=== PATIENT | male | born 1985 | race African-American/Black ===

== ENCOUNTER 2016-09-01 13:49 | Emergency (ER) | payer OTHER ==
--- NOTE | 2016-09-01 15:23 | DIAGNOSTIC IMAGING REPORT ---
PROCEDURE: XR LUMBAR SPINE 2 OR 3 VIEWS INDICATION: TRAUMA/INJURY TECHNIQUE: Three views. COMPARISON: None. FINDINGS: Osseous structures and disc spaces are normal. No evidence of an acute process or fracture. IMPRESSION: 1. Negative lumbar spine.
--- NOTE | 2016-09-01 15:26 | ED NURSING NOTES ---
Clinical Report - Nurses [address] [place] [address] 09/01/2016 13:56 Patient: ADI ALLEN JR TRIAGE Triage time 14:00 Sep 01 2016. Acuity: LEVEL 4. Chief Complaint: FALL DOWN 1 STAIR. --14:06 Vickie Hunt R.N. 14:01 09/01/16. BP: 132/87. HR: 99. RR: 18. O2 saturation: 100%. Temp: 97.9 F. Pain level now: 04/30. --14:06 Vickie Hunt R.N. Weight: 149.6 kg stated. Height/Length: 75 inches Per Patient. BMI: 41.2. --13:59 Vickie Hunt R.N. Medications Insulin. --14:02 Vickie Hunt R.N. Medication/allergy information source: the patient. --14:06 Vickie Hunt R.N. Allergies Metformin. --14:03 Vickie Hunt R.N. History Arrived by private vehicle, and accompanied by family. This occurred (10 AM today). ( slipped off a step on a truck and landed with low back on the step. complains of back pain). He has had back pain. No loss of consciousness. No dizziness, neck pain, extremity pain, trouble walking or limited ROM present. No difficulty breathing. 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 SOCIAL HX: Heavy tobacco smoker (cigarette)- 1 pack per day. History of drug use: marijuana. No alcohol use. No infectious disease exposure. ABUSE ASSESSMENT: No report of abuse. SELF HARM ASSESSMENT: A self harm assessment was performed. The patient answered "no" to the question "Have you recently felt down, depressed, or hopeless?", "Have you noticed less interest or pleasure in doing things?", "Do you have thoughts of harming or killing yourself?", "Are you here because you tried to hurt yourself?", "Have you ever tried to hurt yourself before today?", "Have you recently had thoughts about harming or killing others?" and "Do you have any dangerous items in your possession?". FALL RISK ASSESSMENT: Fall risk assessment completed. No fall risk identified. NUTRITIONAL RISK ASSESSMENT: The nutritional risk assessment revealed no deficiencies. FUNCTIONAL ASSESSMENT: Functional assessment: no impairments noted. LEARNING NEEDS ASSESSMENT: The learning needs assessment revealed no barriers. SKIN INTEGRITY ASSESSMENT: Skin integrity risk assessment completed. No skin integrity risk identified. --14:06 Vickie Hunt R.N. PROBLEMS: Hemorrhoids. Diabetes Mellitus. --14:03 Vickie Hunt R.N. ADDITIONAL SURGERIES: no known surgeries. Interventions ID band on patient. --14:06 Vickie Hunt R.N. PHYSICAL ASSESSMENT 14:12 09/01/16. GENERAL / NEURO / PSYCH: Alert. Oriented X 4. Appears in no acute distress. HEENT: Pupils equal, round and reactive to light. Head non-tender. RESPIRATORY: Chest nontender. Breath sounds within normal limits. GI / : Abdomen soft and nontender. No CVA tenderness. EXTREMITIES: Extremities exhibit normal ROM. Neuro-vascular status intact to the extremity. SKIN: Skin intact. Skin is warm and dry. No ecchymosis. No skin breakdown noted. BACK: Vertebral point tenderness over the thoracic spine. No soft tissue tenderness in the back. --14:12 Vickie Hunt R.N. NURSING PROGRESS NOTES 14:00 09/01/16. Two patient identifiers checked. Call light placed in reach. Side rails up x 1. Bed placed in lowest position. Brakes of bed on. Patient ready for evaluation. --14:12 Vickie Hunt R.N. 14:24 09/01/2016 Hydrocodone-APAP (Hydrocodone-Acetaminophen) PO 5/325 mg Tablets 1 tab given. Allergies verified, confirmed 5 rights and sedative warning given to the patient. --14:24 Vickie Hunt R.N. 14:55 09/01/16. Reassessment after medication administered. He is calm and resting quietly. Overall patient status is improved- he states feels better. Patient waiting for radiology results and disposition. --14:55 Vickie Hunt R.N. DISPOSITION / DISCHARGE 15:34 09/01/16. Condition at departure: improved and stable. The goals identified in the patient's plan of care were met. No learning barriers present. Discharge instructions provided and reviewed with the patient. Reviewed medication(s) side effects, precautions, dosing and course information. Prescription(s) given to the patient. Patient verbalized understanding. Written instructions provided in [place]. The patient was discharged home and accompanied by spouse. He left the Emergency Department ambulatory and via private vehicle. Patient driving. FALL RISK ASSESSMENT: Fall risk assessment completed. No fall risk identified. --15:34 Vickie Hunt R.N. 14:01 09/01/16. BP: 132/87. HR: 99. RR: 18. O2 saturation: 100%. Temp: 97.9 F. Pain level now: 04/30. --15:34 Vickie Hunt R.N. Departure time: 15:34 Sep 01 2016. --15:34 Vickie Hunt R.N. Locked/Released at 09/01/2016 15:39 by Vickie Hunt R.N.
--- NOTE | 2016-09-01 15:26 | ED ORDER SUMMARY ---
..... Patient: ADI ALLEN JR OrderSheet [facility] VisitID: [id number] [address] [place] [address] 31y, M Registration Date/Time: 09/01/2016 ORDER SHEET Weight: 149.6 kg (stated) Allergies: Metformin GENERAL ORDERS: Lumbar Spine 2 or 3V Urgent (14:19 09/01/2016 Fiona Cho.ADonna-C) ([facility] 14:20 [place]) MEDICATION ORDERS: Hydrocodone-APAP PO 5/325 mg (NOW, HIGH ALERT MEDICATION) (14:19 09/01/2016 Fiona SuarezADonna-C) (14:24 Sharron Jiménez) IV FLUIDS: ORDER SHEET NOTES: [Electronically signed by Vickie Hunt R.N. (15:39 09/01/2016)] [Electronically signed by Maria C Cooney P.A.-C (15:52 09/01/2016)] [Electronically locked/signed by Vickie Hunt R.N. (15:39 09/01/2016)]
--- NOTE | 2016-09-01 15:26 | ED ORDER SUMMARY ---
..... Patient: ADI ALLEN JR OrderSheet [facility] VisitID: [id number] [address] [place] [address] 31y, M Registration Date/Time: 09/01/2016 ORDER SHEET Weight: 149.6 kg (stated) Allergies: Metformin GENERAL ORDERS: Lumbar Spine 2 or 3V Urgent (14:19 09/01/2016 Fiona Cho.AoDnna-C) ([facility] 14:20 [place]) MEDICATION ORDERS: Hydrocodone-APAP PO 5/325 mg (NOW, HIGH ALERT MEDICATION) (14:19 09/01/2016 Fiona SuarezADonna-C) (14:24 Sharron Jiménez) IV FLUIDS: ORDER SHEET NOTES: [Electronically signed by Vickie Hunt R.N. (15:39 09/01/2016)] [Electronically signed by Maria C Cooney P.A.-C (15:52 09/01/2016)] [Electronically locked/signed by Vickie Hunt R.N. (15:39 09/01/2016)]
--- NOTE | 2016-09-01 15:26 | ED CLINICAL REPORT ---
Clinical Report - Physicians/Mid Levels [facility] [address] [place] [address] 09/01/2016 13:56 Patient: ADI ALLEN JR Time Seen: 14:11 Sep 01 2016. Arrived- By private vehicle. Historian- patient. HISTORY OF PRESENT ILLNESS Chief Complaint: FALL. Location of injuries- (low back). The injury occurred just prior to arrival. Fell while walking (down one step with weight in hands, onto his back, at work). Occurred at home. The patient complains of mild pain. No blow to the head or loss of consciousness. (Fell backwards. No LOC. No injury to the head or neck or arms. Patient with history of low back pain, however this is different. No radiation of pain. No medications or respiratory arrival. Occurred at work.). REVIEW OF SYSTEMS No dizziness, loss of vision, hearing loss or laceration. He has no pain on weight bearing. All systems otherwise negative, except as recorded above. SOCIAL HISTORY Smoker- current status unknown. History of drug use: marijuana. ADDITIONAL NOTES The nursing notes have been reviewed. PHYSICAL EXAM Vital Signs: 09/01/2016 14:01 BP: 132/87. HR: 99. RR: 18. O2 saturation: 100%. Temp: 97.9 F. Pain level now: 9/10. Appearance: Alert. No acute distress. No backboard or C-collar. Eyes: Pupils equal, round and reactive to light. EOM intact. ENT: No dental injury. Neck: No decreased ROM in the neck. Painless ROM. Non-tender. No vertebral tenderness. CVS: Heart sounds normal. Pulses normal. Respiratory: Breath sounds normal. Chest nontender. No chest wall injury. Abdomen: No visible injury. Soft. Back: Vertebral point tenderness. Moderate vertebral tenderness in the right lower and left lower lumbar area. No right CVA tenderness or left CVA tenderness. Skin: Skin intact. Skin warm. Extremities: Pelvis stable. Right hip. No tenderness or laceration. Left hip. No tenderness or swelling. Neuro: Geovanna Coma Scale: 15- eyes open spontaneously (4); best verbal response- oriented x 3 (5); best motor response- obeys commands (6). Oriented X 3. No motor deficit. LABS, X-RAYS, AND EKG LS-Spine X-rays: (IMPRESSION: 1. Negative lumbar spine. Electronically Final signed by:Johnnie Michael MD 09/01/2016 3:26:40 PM). The X-rays were independently viewed by me and interpreted by the radiologist. PROGRESS AND PROCEDURES Course of Care: Patient able to ambulate. In pain. No radiation of pain. No signs of routes of the thoracic or cervical or head. Patient with negative x-ray of the lumbar spine, at this time no further workup from a ground-level fall. Patient to rest at home stable. Cause of fall was mechical. 09/01/2016 14:01 BP: 132/87. HR: 99. RR: 18. O2 saturation: 100%. Temp: 97.9 F. Pain level now: 9/10. Patient/family counseled. Disposition: Discharged. CLINICAL IMPRESSION Contusion to the lower back. INSTRUCTIONS Apply ice. Do not work for two days. (take motrin 200 mg, 4 pills every 8 hours in addition to vicodin). Prescription Medications: Hydrocodone/APAP 5mg / 325mg: take 1 orally every 6 hours as needed for pain. Dispense twelve (12). No refill. Follow-up: Follow up with your doctor in three days. (Electronically signed by Maria C Cooney P.A.-C 09/01/2016 15:52)
--- NOTE | 2016-09-01 15:26 | ED NURSING NOTES ---
Clinical Report - Nurses [address] [place] [address] 09/01/2016 13:56 Patient: ADI ALLEN JR TRIAGE Triage time 14:00 Sep 01 2016. Acuity: LEVEL 4. Chief Complaint: FALL DOWN 1 STAIR. --14:06 Vickie Hunt R.N. 14:01 09/01/16. BP: 132/87. HR: 99. RR: 18. O2 saturation: 100%. Temp: 97.9 F. Pain level now: 04/30. --14:06 Vickie Hunt R.N. Weight: 149.6 kg stated. Height/Length: 75 inches Per Patient. BMI: 41.2. --13:59 Vickie Hunt R.N. Medications Insulin. --14:02 Vickie Hunt R.N. Medication/allergy information source: the patient. --14:06 Vickie Hunt R.N. Allergies Metformin. --14:03 Vickie Hunt R.N. History Arrived by private vehicle, and accompanied by family. This occurred (10 AM today). ( slipped off a step on a truck and landed with low back on the step. complains of back pain). He has had back pain. No loss of consciousness. No dizziness, neck pain, extremity pain, trouble walking or limited ROM present. No difficulty breathing. 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 SOCIAL HX: Heavy tobacco smoker (cigarette)- 1 pack per day. History of drug use: marijuana. No alcohol use. No infectious disease exposure. ABUSE ASSESSMENT: No report of abuse. SELF HARM ASSESSMENT: A self harm assessment was performed. The patient answered "no" to the question "Have you recently felt down, depressed, or hopeless?", "Have you noticed less interest or pleasure in doing things?", "Do you have thoughts of harming or killing yourself?", "Are you here because you tried to hurt yourself?", "Have you ever tried to hurt yourself before today?", "Have you recently had thoughts about harming or killing others?" and "Do you have any dangerous items in your possession?". FALL RISK ASSESSMENT: Fall risk assessment completed. No fall risk identified. NUTRITIONAL RISK ASSESSMENT: The nutritional risk assessment revealed no deficiencies. FUNCTIONAL ASSESSMENT: Functional assessment: no impairments noted. LEARNING NEEDS ASSESSMENT: The learning needs assessment revealed no barriers. SKIN INTEGRITY ASSESSMENT: Skin integrity risk assessment completed. No skin integrity risk identified. --14:06 Vickie Hunt R.N. PROBLEMS: Hemorrhoids. Diabetes Mellitus. --14:03 Vickie Hunt R.N. ADDITIONAL SURGERIES: no known surgeries. Interventions ID band on patient. --14:06 Vickie Hunt R.N. PHYSICAL ASSESSMENT 14:12 09/01/16. GENERAL / NEURO / PSYCH: Alert. Oriented X 4. Appears in no acute distress. HEENT: Pupils equal, round and reactive to light. Head non-tender. RESPIRATORY: Chest nontender. Breath sounds within normal limits. GI / : Abdomen soft and nontender. No CVA tenderness. EXTREMITIES: Extremities exhibit normal ROM. Neuro-vascular status intact to the extremity. SKIN: Skin intact. Skin is warm and dry. No ecchymosis. No skin breakdown noted. BACK: Vertebral point tenderness over the thoracic spine. No soft tissue tenderness in the back. --14:12 Vickie Hunt R.N. NURSING PROGRESS NOTES 14:00 09/01/16. Two patient identifiers checked. Call light placed in reach. Side rails up x 1. Bed placed in lowest position. Brakes of bed on. Patient ready for evaluation. --14:12 Vickie Hunt R.N. 14:24 09/01/2016 Hydrocodone-APAP (Hydrocodone-Acetaminophen) PO 5/325 mg Tablets 1 tab given. Allergies verified, confirmed 5 rights and sedative warning given to the patient. --14:24 Vickie Hunt R.N. 14:55 09/01/16. Reassessment after medication administered. He is calm and resting quietly. Overall patient status is improved- he states feels better. Patient waiting for radiology results and disposition. --14:55 Vickie Hunt R.N. DISPOSITION / DISCHARGE 15:34 09/01/16. Condition at departure: improved and stable. The goals identified in the patient's plan of care were met. No learning barriers present. Discharge instructions provided and reviewed with the patient. Reviewed medication(s) side effects, precautions, dosing and course information. Prescription(s) given to the patient. Patient verbalized understanding. Written instructions provided in [place]. The patient was discharged home and accompanied by spouse. He left the Emergency Department ambulatory and via private vehicle. Patient driving. FALL RISK ASSESSMENT: Fall risk assessment completed. No fall risk identified. --15:34 Vickie Hunt R.N. 14:01 09/01/16. BP: 132/87. HR: 99. RR: 18. O2 saturation: 100%. Temp: 97.9 F. Pain level now: 04/30. --15:34 Vickie Hunt R.N. Departure time: 15:34 Sep 01 2016. --15:34 Vickie Hunt R.N. Locked/Released at 09/01/2016 15:39 by Vickie Hunt R.N.
--- NOTE | 2016-09-01 15:26 | ED CLINICAL REPORT ---
Clinical Report - Physicians/Mid Levels [facility] [address] [place] [place] [address] 09/01/2016 13:56 Patient: ADI ALLEN JR Time Seen: 14:11 Sep 01 2016. Arrived- By private vehicle. Historian- patient. HISTORY OF PRESENT ILLNESS Chief Complaint: FALL. Location of injuries- (low back). The injury occurred just prior to arrival. Fell while walking (down one step with weight in hands, onto his back, at work). Occurred at home. The patient complains of mild pain. No blow to the head or loss of consciousness. (Fell backwards. No LOC. No injury to the head or neck or arms. Patient with history of low back pain, however this is different. No radiation of pain. No medications or respiratory arrival. Occurred at work.). REVIEW OF SYSTEMS No dizziness, loss of vision, hearing loss or laceration. He has no pain on weight bearing. All systems otherwise negative, except as recorded above. SOCIAL HISTORY Smoker- current status unknown. History of drug use: marijuana. ADDITIONAL NOTES The nursing notes have been reviewed. PHYSICAL EXAM Vital Signs: 09/01/2016 14:01 BP: 132/87. HR: 99. RR: 18. O2 saturation: 100%. Temp: 97.9 F. Pain level now: 9/10. Appearance: Alert. No acute distress. No backboard or C-collar. Eyes: Pupils equal, round and reactive to light. EOM intact. ENT: No dental injury. Neck: No decreased ROM in the neck. Painless ROM. Non-tender. No vertebral tenderness. CVS: Heart sounds normal. Pulses normal. Respiratory: Breath sounds normal. Chest nontender. No chest wall injury. Abdomen: No visible injury. Soft. Back: Vertebral point tenderness. Moderate vertebral tenderness in the right lower and left lower lumbar area. No right CVA tenderness or left CVA tenderness. Skin: Skin intact. Skin warm. Extremities: Pelvis stable. Right hip. No tenderness or laceration. Left hip. No tenderness or swelling. Neuro: Geovanna Coma Scale: 15- eyes open spontaneously (4); best verbal response- oriented x 3 (5); best motor response- obeys commands (6). Oriented X 3. No motor deficit. LABS, X-RAYS, AND EKG LS-Spine X-rays: (IMPRESSION: 1. Negative lumbar spine. Electronically Final signed by:Johnnie Michael MD 09/01/2016 3:26:40 PM). The X-rays were independently viewed by me and interpreted by the radiologist. PROGRESS AND PROCEDURES Course of Care: Patient able to ambulate. In pain. No radiation of pain. No signs of routes of the thoracic or cervical or head. Patient with negative x-ray of the lumbar spine, at this time no further workup from a ground-level fall. Patient to rest at home stable. Cause of fall was mechical. 09/01/2016 14:01 BP: 132/87. HR: 99. RR: 18. O2 saturation: 100%. Temp: 97.9 F. Pain level now: 9/10. Patient/family counseled. Disposition: Discharged. CLINICAL IMPRESSION Contusion to the lower back. INSTRUCTIONS Apply ice. Do not work for two days. (take motrin 200 mg, 4 pills every 8 hours in addition to vicodin). Prescription Medications: Hydrocodone/APAP 5mg / 325mg: take 1 orally every 6 hours as needed for pain. Dispense twelve (12). No refill. Follow-up: Follow up with your doctor in three days. (Electronically signed by Maria C Cooney P.A.-C 09/01/2016 15:52)
--- NOTE | 2016-09-01 15:53 | ED DISCHARGE INSTRUCTIONS ---
Patient: ADI ALLEN JR General Instructions [facility] VisitID: [id number] [place] [address] 31y, M Registration Date/Time: 09/01/2016 Contusion to the lower back. INSTRUCTIONS Apply ice. Do not work for two days. (take motrin 200 mg, 4 pills every 8 hours in addition to vicodin). Prescription Medications: Hydrocodone/APAP 5mg / 325mg: take 1 orally every 6 hours as needed for pain. Dispense twelve (12). No refill. Follow-up: Follow up with your doctor in three days. ADDITIONAL INFORMATION Contusion, Back You have a CONTUSION of the back. This is a bruise with swelling and some bleeding under the skin. There are no broken bones. This injury takes a few days to a few weeks to heal. It is normal to feel muscle stiffness and aching in the area of injury the next day. Home Care: 1) Rest and relax your back muscles until you are feeling better. 2) Apply an ice pack (crushed or cubed ice in a plastic bag, wrapped in a towel) for 20 minutes every 2-4 hours during the first two days after a new injury. Local heat (hot shower, hot bath or heating pad) and massage will help reduce muscle spasm . Some patients feel best alternating treatments. Use the method that feels best to you for. 3) You may use acetaminophen (Tylenol) or ibuprofen (Motrin, Advil) to control pain, unless another pain medicine was prescribed. [ NOTE : If you have chronic liver or kidney disease or ever had a stomach ulcer or GI bleeding, talk with your doctor before using these medicines.] Follow Up with your doctor or this facility if your symptoms do not start to improve after three days. [NOTE: If X-rays were taken, they will be reviewed by a radiologist. You will be notified of any new findings that may affect your care.] Get Prompt Medical Attention if any of the following occur: -- Pain becomes worse or spreads to one or both legs -- Weakness or numbness in one or both legs -- Loss of bowel or bladder control -- Numbness in the groin or genital area -- Redness, warmth or drainage from the skin Hydrocodone Bitartrate, Acetaminophen Oral tablet What is this medicine? ACETAMINOPHEN; HYDROCODONE (a set a STEVE monae fen; everardo droe KOE done) is a pain reliever. It is used to treat mild to moderate pain. How should I use this medicine? Take this medicine by mouth. Swallow it with a full glass of water. Follow the directions on the prescription label. If the medicine upsets your stomach, take the medicine with food or milk. Do not take more than you are told to take. Talk to your sheep farmer regarding the use of this medicine in children. This medicine is not approved for use in children. What side effects may I notice from receiving this medicine? Side effects that you should report to your doctor or health home care and home health aides teacher as soon as possible: allergic reactions like skin rash, itching or hives, swelling of the face, lips, or tongue breathing problems confusion feeling faint or lightheaded, falls stomach pain yellowing of the eyes or skin Side effects that usually do not require medical attention (report to your doctor or health home care and home health aides teacher if they continue or are bothersome): nausea, vomiting stomach upset What may interact with this medicine? alcohol antihistamines isoniazid medicines for depression, anxiety, or psychotic disturbances medicines for sleep muscle relaxants naltrexone narcotic medicines (opiates) for pain phenobarbital ritonavir tramadol What if I miss a dose? If you miss a dose, take it as soon as you can. If it is almost time for your next dose, take only that dose. Do not take double or extra doses. Where should I keep my medicine? Keep out of the reach of children. This medicine can be abused. Keep your medicine in a safe place to protect it from theft. Do not share this medicine with anyone. Selling or giving away this medicine is dangerous and against the law. Store at room temperature between 15 and 30 degrees C (59 and 86 degrees F). Protect from light. Keep container tightly closed. Throw away any unused medicine after the expiration date. Discard unused medicine and used packaging carefully. Pets and children can be harmed if they find used or lost packages. What should I tell my health care provider before I take this medicine? They need to know if you have any of these conditions: brain tumor Crohn's disease, inflammatory bowel disease, or ulcerative colitis drink more than 3 alcohol-containing drinks per day drug abuse or addiction head injury heart or circulation problems kidney disease or problems going to the bathroom liver disease lung disease, asthma, or breathing problems an unusual or allergic reaction to acetaminophen, hydrocodone, other opioid analgesics, other medicines, foods, dyes, or preservatives or trying to get breast-feeding What should I watch for while using this medicine? Tell your doctor or health home care and home health aides teacher if your pain does not go away, if it gets worse, or if you have new or a different type of pain. You may develop tolerance to the medicine. Tolerance means that you will need a higher dose of the medicine for pain relief. Tolerance is normal and is expected if you take the medicine for a long time. Do not suddenly stop taking your medicine because you may develop a severe reaction. Your body becomes used to the medicine. This does NOT mean you are addicted. Addiction is a behavior related to getting and using a drug for a non-medical reason. If you have pain, you have a medical reason to take pain medicine. Your doctor will tell you how much medicine to take. If your doctor wants you to stop the medicine, the dose will be slowly lowered over time to avoid any side effects. You may get drowsy or dizzy when you first start taking the medicine or change doses. Do not drive, use machinery, or do anything that may be dangerous until you know how the medicine affects you. Stand or sit up slowly. There are different types of narcotic medicines (opiates) for pain. If you take more than one type at the same time, you may have more side effects. Give your health care provider a list of all medicines you use. Your doctor will tell you how much medicine to take. Do not take more medicine than directed. Call emergency for help if you have problems breathing. The medicine will cause constipation. Try to have a bowel movement at least every 2 to 3 days. If you do not have a bowel movement for 3 days, call your doctor or health home care and home health aides teacher. Too much acetaminophen can be very dangerous. Do not take Tylenol (acetaminophen) or medicines that contain acetaminophen with this medicine. Many non-prescription medicines contain acetaminophen. Always read the labels carefully. You have been given the following additional information: Contusion, Back Hydrocodone Bitartrate, Acetaminophen Oral tablet Do not work for two days. (Electronically signed by Maria C Cooney P.A.-C 09/01/2016 15:52)
--- NOTE | 2016-09-01 15:53 | ED MAR SUMMARY ---
..... Medication Administration Record [facility] [address] [place] [address] Patient: ADI ALLEN Visit ID: [id number] 31y, M Weight: 149.6 kg Height/Length: 75 in BMI: 41.2 ALLERGIES: Metformin Given 14:24 09/01/2016 Vickie Hunt R.N. Medication Administered: HYDROCODONE-APAP [PO] (HYDROCODONE-ACETAMINOPHEN), Dose: 1 tab 5/325 mg Tablets PO. Medication Ordered: Hydrocodone-APAP PO 5/325 mg (NOW, HIGH ALERT MEDICATION).
--- NOTE | 2016-09-01 15:53 | ED MED RECONCILIATION SUMMARY ---
Patient: ADI ALLEN JR Medication Reconciliation Report [facility] VisitID: [id number] [address] [place] [address] 31y, M Registration Date/Time: 09/01/2016 Weight: 149.6 kg Height/Length: 75 in. BMI: 41.2 ALLERGIES: Metformin The patient's Home Medications are listed below: THE FOLLOWING MEDICATIONS NEED TO BE RECONCILED: Insulin The source(s) of the original Home Medication information: patient The following Medications were given to the patient in the Emergency Department: Hydrocodone-APAP [PO] PO 1 tab, administered: 09/01/2016 2:24:00 PM The following Medications were prescribed to the patient: Hydrocodone/APAP 5mg / 325mg: take 1 orally every 6 hours as needed for pain. Dispense twelve (12). No refill. -- Maria C Cooney, PDonnaALaniC
--- NOTE | 2016-09-01 15:53 | ED MED RECONCILIATION SUMMARY ---
Patient: ADI ALLEN JR Medication Reconciliation Report [facility] VisitID: [id number] [address] [place] [address] 31y, M Registration Date/Time: 09/01/2016 Weight: 149.6 kg Height/Length: 75 in. BMI: 41.2 ALLERGIES: Metformin The patient's Home Medications are listed below: THE FOLLOWING MEDICATIONS NEED TO BE RECONCILED: Insulin The source(s) of the original Home Medication information: patient The following Medications were given to the patient in the Emergency Department: Hydrocodone-APAP [PO] PO 1 tab, administered: 09/01/2016 2:24:00 PM The following Medications were prescribed to the patient: Hydrocodone/APAP 5mg / 325mg: take 1 orally every 6 hours as needed for pain. Dispense twelve (12). No refill. -- Maria C Cooney, PDonnaALaniC
--- NOTE | 2016-09-01 15:53 | ED MAR SUMMARY ---
..... Medication Administration Record [facility] [address] [place] [address] Patient: ADI ALLEN Visit ID: [id number] 31y, M Weight: 149.6 kg Height/Length: 75 in BMI: 41.2 ALLERGIES: Metformin Given 14:24 09/01/2016 Vickie Hunt R.N. Medication Administered: HYDROCODONE-APAP [PO] (HYDROCODONE-ACETAMINOPHEN), Dose: 1 tab 5/325 mg Tablets PO. Medication Ordered: Hydrocodone-APAP PO 5/325 mg (NOW, HIGH ALERT MEDICATION).
--- NOTE | 2016-09-01 15:53 | ED DISCHARGE INSTRUCTIONS ---
Patient: ADI ALLEN JR General Instructions [facility] VisitID: [id number] [place] [address] 31y, M Registration Date/Time: 09/01/2016 Contusion to the lower back. INSTRUCTIONS Apply ice. Do not work for two days. (take motrin 200 mg, 4 pills every 8 hours in addition to vicodin). Prescription Medications: Hydrocodone/APAP 5mg / 325mg: take 1 orally every 6 hours as needed for pain. Dispense twelve (12). No refill. Follow-up: Follow up with your doctor in three days. ADDITIONAL INFORMATION Contusion, Back You have a CONTUSION of the back. This is a bruise with swelling and some bleeding under the skin. There are no broken bones. This injury takes a few days to a few weeks to heal. It is normal to feel muscle stiffness and aching in the area of injury the next day. Home Care: 1) Rest and relax your back muscles until you are feeling better. 2) Apply an ice pack (crushed or cubed ice in a plastic bag, wrapped in a towel) for 20 minutes every 2-4 hours during the first two days after a new injury. Local heat (hot shower, hot bath or heating pad) and massage will help reduce muscle spasm . Some patients feel best alternating treatments. Use the method that feels best to you for. 3) You may use acetaminophen (Tylenol) or ibuprofen (Motrin, Advil) to control pain, unless another pain medicine was prescribed. [ NOTE : If you have chronic liver or kidney disease or ever had a stomach ulcer or GI bleeding, talk with your doctor before using these medicines.] Follow Up with your doctor or this facility if your symptoms do not start to improve after three days. [NOTE: If X-rays were taken, they will be reviewed by a radiologist. You will be notified of any new findings that may affect your care.] Get Prompt Medical Attention if any of the following occur: -- Pain becomes worse or spreads to one or both legs -- Weakness or numbness in one or both legs -- Loss of bowel or bladder control -- Numbness in the groin or genital area -- Redness, warmth or drainage from the skin Hydrocodone Bitartrate, Acetaminophen Oral tablet What is this medicine? ACETAMINOPHEN; HYDROCODONE (a set a STEVE monae fen; everardo droe KOE done) is a pain reliever. It is used to treat mild to moderate pain. How should I use this medicine? Take this medicine by mouth. Swallow it with a full glass of water. Follow the directions on the prescription label. If the medicine upsets your stomach, take the medicine with food or milk. Do not take more than you are told to take. Talk to your pulp bleacher regarding the use of this medicine in children. This medicine is not approved for use in children. What side effects may I notice from receiving this medicine? Side effects that you should report to your doctor or health patient care director as soon as possible: allergic reactions like skin rash, itching or hives, swelling of the face, lips, or tongue breathing problems confusion feeling faint or lightheaded, falls stomach pain yellowing of the eyes or skin Side effects that usually do not require medical attention (report to your doctor or health patient care director if they continue or are bothersome): nausea, vomiting stomach upset What may interact with this medicine? alcohol antihistamines isoniazid medicines for depression, anxiety, or psychotic disturbances medicines for sleep muscle relaxants naltrexone narcotic medicines (opiates) for pain phenobarbital ritonavir tramadol What if I miss a dose? If you miss a dose, take it as soon as you can. If it is almost time for your next dose, take only that dose. Do not take double or extra doses. Where should I keep my medicine? Keep out of the reach of children. This medicine can be abused. Keep your medicine in a safe place to protect it from theft. Do not share this medicine with anyone. Selling or giving away this medicine is dangerous and against the law. Store at room temperature between 15 and 30 degrees C (59 and 86 degrees F). Protect from light. Keep container tightly closed. Throw away any unused medicine after the expiration date. Discard unused medicine and used packaging carefully. Pets and children can be harmed if they find used or lost packages. What should I tell my health care provider before I take this medicine? They need to know if you have any of these conditions: brain tumor Crohn's disease, inflammatory bowel disease, or ulcerative colitis drink more than 3 alcohol-containing drinks per day drug abuse or addiction head injury heart or circulation problems kidney disease or problems going to the bathroom liver disease lung disease, asthma, or breathing problems an unusual or allergic reaction to acetaminophen, hydrocodone, other opioid analgesics, other medicines, foods, dyes, or preservatives or trying to get breast-feeding What should I watch for while using this medicine? Tell your doctor or health patient care director if your pain does not go away, if it gets worse, or if you have new or a different type of pain. You may develop tolerance to the medicine. Tolerance means that you will need a higher dose of the medicine for pain relief. Tolerance is normal and is expected if you take the medicine for a long time. Do not suddenly stop taking your medicine because you may develop a severe reaction. Your body becomes used to the medicine. This does NOT mean you are addicted. Addiction is a behavior related to getting and using a drug for a non-medical reason. If you have pain, you have a medical reason to take pain medicine. Your doctor will tell you how much medicine to take. If your doctor wants you to stop the medicine, the dose will be slowly lowered over time to avoid any side effects. You may get drowsy or dizzy when you first start taking the medicine or change doses. Do not drive, use machinery, or do anything that may be dangerous until you know how the medicine affects you. Stand or sit up slowly. There are different types of narcotic medicines (opiates) for pain. If you take more than one type at the same time, you may have more side effects. Give your health care provider a list of all medicines you use. Your doctor will tell you how much medicine to take. Do not take more medicine than directed. Call emergency for help if you have problems breathing. The medicine will cause constipation. Try to have a bowel movement at least every 2 to 3 days. If you do not have a bowel movement for 3 days, call your doctor or health patient care director. Too much acetaminophen can be very dangerous. Do not take Tylenol (acetaminophen) or medicines that contain acetaminophen with this medicine. Many non-prescription medicines contain acetaminophen. Always read the labels carefully. You have been given the following additional information: Contusion, Back Hydrocodone Bitartrate, Acetaminophen Oral tablet Do not work for two days. (Electronically signed by Maria C Cooney P.A.-C 09/01/2016 15:52)
== END 2016-09-01 15:34 | disposition home or self-care (01) ==
LOC: ED SRH 13:49
DX: S30.0XXA Contusion of lower back and pelvis, initial encounter (principal); W10.9XXA Fall (on) (from) unspecified stairs and steps, initial encounter; Y93.01 Activity, walking, marching and hiking; Y92.9 Unspecified place or not applicable; Y99.0 Civilian activity done for income or pay; F17.200 Nicotine dependence, unspecified, uncomplicated; Z88.8 Allergy status to other drugs, medicaments and biological substances